=== PATIENT | male | born 1985 ===

== ENCOUNTER → 2023-05-09 | Outpatient (CLI) | payer BC ==
--- NOTE | 2023-05-09 18:20 | US ---
EXAMINATION TYPE: US thyroid st tissue head/neck DATE OF EXAM: 05/09/2023 COMPARISON: NONE CLINICAL INDICATION: Male, 38 years old with history of M54.2 CERVICALGIA; Right ear pressure. hx ea r infections. No palpable. TECHNIQUE: Multiple sonographic images taken of patients area of concern FINDINGS: Patients area of concern at right lateral neck, inferior to ear scanned. No prominent mas ses, lesions or fluid collections identified. IMPRESSION: The right lateral neck inferior to ear scan no masses or organizing fluid collections. Consider cross -sectional imaging with CT with IV contrast for further evaluation with palpable marker placement.
== END | disposition home or self-care (01) ==
LOC: RADUSWWP 16:15
PROVIDERS: ATTEND Family Medicine
DX: M54.2 Cervicalgia (principal)
CPT/HCPCS: 76536